=== PATIENT | male | born 1965 | race Hispanic/Latino ===

== ENCOUNTER 2019-10-28 14:10 | Outpatient (CLI) | payer BC ==
--- NOTE | 2019-10-28 14:46 | RAD ---
LEFT SHOULDER THREE VIEWS: 10/28/19 COMPARISON: None. HISTORY: Shoulder pain. FINDINGS: There is joint space narrowing with superior osteophyte formation at the level of the left acromiocla vicular joint. There is no widening of the coracoclavicular interspace. No displaced fracture or evid ence of dislocation. Inferior osteophyte formation involves the distal clavicle. IMPRESSION: Degenerative change of the left acromioclavicular interspace. No acute fracture or dislocation. POS: [facility]
--- NOTE | 2019-10-28 14:47 | RAD ---
LEFT KNEE 4 VIEWS: HISTORY: Left knee pain. FINDINGS/IMPRESSION: No fracture, dislocation, or bony destruction is seen. POS: [facility]
== END 2019-10-28 14:11 | disposition home or self-care (01) ==
LOC: RAD-FRANK 14:10
PROVIDERS: ATTEND Nurse Practitioner Family
DX: M25.512 Pain in left shoulder (principal); M25.562 Pain in left knee; M19.012 Primary osteoarthritis, left shoulder

== ENCOUNTER 2019-11-11 11:53 | Outpatient (CLI) | payer BC ==
--- NOTE | 2019-11-11 14:02 | MRI ---
MRI OF LEFT KNEE: DATE: 11/11/2019. PROVIDED CLINICAL HISTORY: Left knee pain. FINDINGS: The anterior cruciate ligament, posterior cruciate ligament, medial collateral ligament, medial colla teral ligament, and lateral collateral ligamentous complex demonstrate an intact MR appearance, as do es the extensor mechanism. There is a complex nondisplaced tear involving the body-posterior horn junction of the medial meniscu s. Lateral meniscus demonstrates no evidence for tear. There is articular cartilage irregularity involving the posterior central weightbearing portions of t he medial femoral condyle with foci of apparent full-thickness cartilage loss. Minimal subjacent sub cortical signal alteration. There is full-thickness articular cartilage loss involving the caudal as pects of the median ridge and lateral facet of the patella. There is a small knee joint effusion. No focal concerning regional marrow or muscular signal abnorma lity is evident. IMPRESSION: 1. Complex nondisplaced tear involving the body-posterior horn junction of the medial meniscus. 2. 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 3. Small knee joint effusion. POS: [facility]
== END 2019-11-11 11:54 | disposition home or self-care (01) ==
LOC: BICMRI 11:53
PROVIDERS: ATTEND Orthopaedic Surgery
DX: M25.562 Pain in left knee (principal); S83.232A Complex tear of medial meniscus, current injury, left knee, initial encounter; M25.462 Effusion, left knee

== ENCOUNTER 2021-06-12 13:22 | Outpatient (CLI) | payer BC ==
[2021-06-12 15:36] LABS: #Basophils 0.1 10x3/uL (0.0-0.2); #Eosinphils 0.3 10x3/uL (0.0-0.5); #Monocytes 0.5 10x3/uL (0.0-1.1); #Neutrophils 4.2 10x3/uL (1.5-8.4); %Basophils 0.8 % (0.0-2.0); %Eosinophils 4.6 % (0.0-6.0); %Lymphocytes 30.6 % (18.0-47.0); %Monocytes 7.2 % (0.0-10.0); %Neutrophils 56.5 % (40.0-75.0); Hemoglobin 16.5 g/dL (13.5-17.5); Mean Corpuscular HGB CONC 34.6 g/dL (32.0-36.0); Mean Corpuscular Hemoglobin 30.1 pg (27.0-33.0); Mean Platelet Volume 10.2 fl (7.4-10.4); Platelet Count 259 10x3/uL (150-450); RBC Distribution Width 12.3 % (11.5-14.5); Red Blood Cell (RBC) Count 5.48 10x6/uL (4.32-5.72); White Blood Cell (WBC) Count 7.4 10x3/uL (3.5-10.5)
[2021-06-12 15:46] LABS: Anion Gap 13 mmol/L (10-20); BUN (Urea Nitrogen) 19 mg/dL (8.4-25.7); Calc. Creatinine Clearance 0 mL/min (70-130); Calcium 9.5 mg/dL (7.8-10.44); Carbon Dioxide 28 mmol/L (22-29); Chloride 99 mmol/L (98-107); Glucose 119 mg/dL (70-105); Potassium 4.1 mmol/L (3.5-5.1); Sodium 136 mmol/L (136-145)
[2021-06-13 09:07] LABS: SARS-CoV-2 PCR by NAA Not Detected (NotDetected)
== END 2021-06-12 13:23 | disposition home or self-care (01) ==
LOC: LABBT 13:22
PROVIDERS: ATTEND Orthopaedic Surgery
DX: Z01.818 Encounter for other preprocedural examination (principal); M19.011 Primary osteoarthritis, right shoulder; Z20.822 Contact with and (suspected) exposure to COVID-19
CPT/HCPCS: 80048; 85025; 93005; 93010; U0003; U0005

== ENCOUNTER 2021-06-15 05:19 | Day surgery (SDC) | payer BC ==
[2021-06-09 12:26] VITALS: BMI 35.4
[2021-06-15] MEDS ORDERED: Vancomycin 1.5 GRAM/300 ML BAG 1.5 GM in Premix Bag 1 BAG IVPB SCH (06:15)
[2021-06-15] MEDS ORDERED: Fentanyl 100 MCG/2 ML VIAL ONE ×2 (06:19→10:28)
[2021-06-15] MEDS ORDERED: Lidocaine 2% Jelly 5 ML TUBE ONE (06:19)
[2021-06-15] MEDS ORDERED: Sodium Chloride 0.9% 100 ML ONE (06:36)
[2021-06-15] MEDS ORDERED: Tranexamic Acid 1,000 MG/10 ML VIAL ONE (06:36)
[2021-06-15] MEDS ORDERED: ceFAZolin 2 GM/Dextrose 50 ML IVPB ONE (07:17)
[2021-06-15] MEDS ORDERED: Phenylephrine 10 MG/ML VIAL ONE (07:37)
[2021-06-15] MEDS ORDERED: Dexamethasone 20 MG/5 ML VIAL ONE (07:45)
[2021-06-15] MEDS ORDERED: PROPOFOL 200 MG/20 ML VIAL ONE (07:45)
[2021-06-15] MEDS ORDERED: Ondansetron PF 4 MG/2 ML Vial ONE (07:45)
[2021-06-15] MEDS ORDERED: Glycopyrrolate 0.2 MG/ML 5 ML SYRINGE ONE (07:45)
[2021-06-15] MEDS ORDERED: ePHEDrine 50 MG/ML VIAL ONE (07:45)
[2021-06-15] MEDS ORDERED: PHENYLEPHRINE-NS 100 MCG/ML 10 ML SYRINGE ONE (07:45)
[2021-06-15] MEDS ORDERED: Rocuronium Bromide 10 MG/ML (10ML VIAL) ONE (07:45)
[2021-06-15] MEDS ORDERED: Scopolamine 1.5 mg/72 hour Patch ONE (07:58)
[2021-06-15] MEDS ORDERED: Famotidine/PF 20 mg/2ml Vial ONE (07:58)
[2021-06-15] MEDS ORDERED: Midazolam HCl 2 mg/2 ml Vial ONE (07:58)
[2021-06-15] MEDS ORDERED: Heparin 5,000 UNITS/ML VIAL ONE (07:58)
[2021-06-15] MEDS ORDERED: Zolpidem Tartrate 5 MG TAB PO PRN (10:00)
[2021-06-15] MEDS ORDERED: Ketorolac Tromethamine 30 MG/ML VIAL IVP PRN (10:00)
[2021-06-15] MEDS ORDERED: Ropivacaine 0.2% 550 ML 550 ML NERVE BLCK SCH (10:00)
[2021-06-15] MEDS ORDERED: Promethazine HCl 25 MG/ML VIAL IM PRN (10:00)
[2021-06-15] MEDS ORDERED: traMADol HCl 50 MG TAB PO PRN ×2 (10:00)
[2021-06-15] MEDS ORDERED: HYDROcodone/Acetaminophen 5/325 mg Tablet PO PRN ×2 (10:00)
[2021-06-15] MEDS ORDERED: Ondansetron PF 4 MG/2 ML Vial IVP PRN (10:00)
[2021-06-15] MEDS ORDERED: Promethazine HCl 25 MG/ML VIAL ONE (13:37)
== END 2021-06-15 16:16 | disposition home or self-care (01) ==
LOC: SDC 05:19
PROVIDERS: ATTEND Orthopaedic Surgery
PROC: 3E0T3BZ Introduction of Anesthetic Agent into Peripheral Nerves and Plexi, Percutaneous Approach (ICD-10-PCS; principal; 2021-06-15)
PROC: 0RRJ0JZ Replacement of Right Shoulder Joint with Synthetic Substitute, Open Approach (ICD-10-PCS; principal; 2021-06-15)
DX: M19.011 Primary osteoarthritis, right shoulder (principal); I11.9 Hypertensive heart disease without heart failure; E11.9 Type 2 diabetes mellitus without complications; E78.1 Pure hyperglyceridemia; E66.9 Obesity, unspecified; Z68.35 Body mass index [BMI] 35.0-35.9, adult; Z79.4 Long term (current) use of insulin; Z79.84 Long term (current) use of oral hypoglycemic drugs; Z79.899 Other long term (current) drug therapy; Z88.6 Allergy status to analgesic agent; Z88.8 Allergy status to other drugs, medicaments and biological substances
CPT/HCPCS: A4306; C1713; C1776; C1889; J0690; J1100; J1644; J2250; J2370; J2405; J2550; J2704; J2795; J3010; J3370; J3490; S0028